=== PATIENT | female | born 1950 | race Caucasian/White ===

== ENCOUNTER → 2017-01-30 20:01 | Outpatient (CLI) | payer MEDICARE, OTHER ==
[~2017-01-30 20:01] MED LIST: BAYER CHEWABLE81 MG PO; CALCIUM CITRATE1 TAB PO; FLEXERIL10 MG; FLEXERIL10 MG PO; GLUCOSAMINE & C1 CAP PO; JUVEN PO; LOVENOX40 MG/0.4 SQ; MELOXICAM PO; MOBIC7.5 MG PO; MULTI-DAY VITAM1 TAB PO; NASCOBAL NS; NIASPAN500 MG PO; NORCO 10/325 TA1 TA1 PO; OSTEO BIFLEX PO; OYST-CAL-5001 TAB PO; PROTONIX40 MG PO; RESTORIL15 MG PO; SYNTHROID25 MCG PO; SYNTHROID75 MCG PO; TYLENOL 8 HOUR650 MG PO; VICODIN 5/500 T1 TAB PO; VITAMIN B-122500 MCG SL
== END | disposition home or self-care (01) ==
LOC: D.LABREF 20:01
DX: N39.0 Urinary tract infection, site not specified (principal)

== ENCOUNTER 2017-01-31 11:40 | Outpatient (CLI) | payer MEDICARE, OTHER ==
[2017-01-30 20:37] LABS: APPEARANCE CLEAR (CLEAR); COLOR YELLOW (YELLOW)
[2017-01-30 20:38] LABS: BILIRUBIN NEGATIVE (NEGATIVE); GLUCOSE NEGATIVE (NEGATIVE); KETONE NEGATIVE (NEGATIVE); LEUKOCYTE ESTERASE NEGATIVE (NEGATIVE); NITRITE NEGATIVE (NEGATIVE); PROTEIN NEGATIVE (NEGATIVE); UROBILINOGEN NORMAL (NORMAL)
[~2017-01-31] VITALS: Ht 167.6 cm; Wt 86.4 kg
[~2017-01-31 11:40] MED LIST changes: -NIASPAN500 MG PO
[2017-01-31] MEDS ORDERED: NIASPAN500 MG PO (12:48)
[2017-01-31 12:49] VITALS: BP 142/84; Ht 167.6 cm; Wt 86.4 kg
--- NOTE | 2017-01-31 12:57 | NUR ---
1255--DISCHARGE INSTRUCTIONS GIVEN, PT VERBALIZES UNDERSTANDING, PT OFF UNIT VIA WC. DARRELL DUNNE
== END 2017-01-31 12:55 | disposition home or self-care (01) ==
LOC: D.OPS 11:40
PROVIDERS: Family Medicine
DX: M81.0 Age-related osteoporosis without current pathological fracture (principal)

== ENCOUNTER 2017-03-07 07:49 | Day surgery (SDC) | payer MEDICARE, OTHER ==
[2017-03-06 13:55] LABS: HEMATOCRIT 43.3 % (36.0-48.0); HEMOGLOBIN 14.7 g/dL (12-16); MCHC 33.9 g/dL (31.0-37.0); MCV 94.1 fL (80.0-100.0); MEAN PLATELET VOLUME 9.9 fL (7.4-10.4); RBC 4.6 10x6/uL (4.00-5.40); RDW 12.4 % (11.5-14.5); WBC 6.1 10x3/uL (4.8-10.8)
[~2017-03-07] VITALS: Ht 167.6 cm; Wt 89.4 kg
[~2017-03-07 07:49] MED LIST changes: +CELEXA20 MG PO; +NIASPAN500 MG PO; +PROLIA INJ 660 MG/M1 IJ; +VITAMIN B-122500 MCG PO
[2017-03-07 11:31] VITALS: BP 137/78; Ht 167.6 cm; Wt 89.4 kg
--- NOTE | 2017-03-07 14:39 | NUR ---
1345 COFFEE GIVEN PER PT REQUEST. 1410 PT STATED SHE HAS VD TWICE WELL W/O DIFF. EXCEPT SOME BURNING USUAL. 1424 PIV REMOVED W/CATHETER TIP INTACT PT RUPAL WELL. DC TEACHING COMPLETE 1430 DC VIA WC OUT TO [facility] WITH DRIVING.
--- NOTE | 2017-03-08 09:10 | OP ---
PATIENT NAME: CRISTOFER WISEMAN MEDICAL RECORD: [id number] :48 LOCATION:D.OPS ADMISSION DATE: SURGEON: CULLEN STACY MD DATE OF OPERATION: 03/07/2017 SURGEON: Cullen Stacy MD ANESTHESIA: MAC. PREOPERATIVE DIAGNOSIS: Interstitial cystitis. PREOPERATIVE DIAGNOSIS: Interstitial cystitis. FINDINGS: Single ureteral orifices bilaterally. No bladder tumors. Diffuse bladder inflammation with glomerulations PROCEDURES: Cystoscopy, intravesical Rimso installation. BLOOD LOSS: None. CLINICAL HISTORY: This is a 66-year-old female, who has complaints of urinary frequency up to every half an hour along with the suprapubic and pelvic and vaginal pain. Her symptoms are consistent with intravesical inflammation. Urine cultures have shown no growth. We will be looking for inflammation of the bladder and if inflammation is seen, we will start treatment with intravesical Rimso. Rimso is an anti-inflammatory. She is allergic to penicillin. She was given Levaquin IV manager labor relations to the OR. DESCRIPTION OF PROCEDURE: The patient was given IV sedation. She was placed in the dorsal lithotomy position and prepped and draped. A 17-Green[place]ic cystoscope with 30-degree lens was used for visualization. Findings are as above. As we filled the bladder, petechial hemorrhages in the bladder wall called glomerulations were seen. The bladder was emptied through the cystoscope and then we placed a red rubber catheter into the bladder and 50 mL of 50% Rimso solution was placed into the bladder. The patient will hold the solution in for about 15 minutes and then void it out. She will come to the office next week to have the second treatment of Rimso given to her by the office nurse. TRANSINT:[id number] Voice Confirmation ID: [id number] DOCUMENT ID: [id number] CULLEN STACY MD at 0910 CC: [id number] DICTATION DATE: 03/07/17 1340 [employer] BUFFER: 03/07/17 2150 [facility] 03/07/[address] [id number]
== END 2017-03-07 14:30 | disposition home or self-care (01) ==
LOC: D.OPS 07:49 → D.PAN 08:15 → D.OPS 08:15 → D.PAN 08:50 → D.OPS 12:15
PROVIDERS: Anesthesiology
DX: N30.10 Interstitial cystitis (chronic) without hematuria (principal); Z88.0 Allergy status to penicillin; Z01.812 Encounter for preprocedural laboratory examination

== ENCOUNTER → 2017-03-15 14:49 | Outpatient (CLI) | payer MEDICARE, OTHER ==
[2017-03-07 11:31] VITALS: BMI 31.8
[2017-03-15 21:45] LABS: APPEARANCE HAZY (CLEAR); BILIRUBIN NEGATIVE (NEGATIVE); COLOR YELLOW (YELLOW); GLUCOSE NEGATIVE (NEGATIVE); KETONE NEGATIVE (NEGATIVE); LEUKOCYTE ESTERASE TRACE (NEGATIVE); NITRITE NEGATIVE (NEGATIVE); PROTEIN NEGATIVE (NEGATIVE); SPECIFIC GRAVITY 1.015 (1.005-1.020); UROBILINOGEN NORMAL (NORMAL)
[2017-03-15 21:48] LABS: BACTERIA FEW /hpf (NONE SEEN); EPITHELIAL CELLS 0-5 /hpf (0-5); WHITE CELLS - URINE 0-5 /hpf (0-5)
== END | disposition home or self-care (01) ==
LOC: D.LABREF 14:49
PROVIDERS: Urology
DX: N39.0 Urinary tract infection, site not specified (principal)

== ENCOUNTER → 2017-04-03 23:15 | Outpatient (CLI) | payer MEDICARE, OTHER ==
[2017-03-07 11:31] VITALS: BMI 31.8
[2017-04-04 01:47] LABS: APPEARANCE HAZY (CLEAR); COLOR GREEN (YELLOW)
[2017-04-04 01:48] LABS: BILIRUBIN NEGATIVE (NEGATIVE); GLUCOSE NEGATIVE (NEGATIVE); KETONE NEGATIVE (NEGATIVE); LEUKOCYTE ESTERASE TRACE (NEGATIVE); NITRITE NEGATIVE (NEGATIVE); PROTEIN TRACE mg/dL (NEGATIVE); UROBILINOGEN NORMAL (NORMAL)
[2017-04-04 01:49] LABS: BACTERIA MODERATE /hpf (NONE SEEN); CALCIUM OXALATE CRYSTALS 0-5 /hpf (NONE SEEN); EPITHELIAL CELLS 0-5 /hpf (0-5); RED CELLS - URINE 0-5 /hpf (0-5); WHITE CELLS - URINE 0-5 /hpf (0-5)
== END | disposition home or self-care (01) ==
LOC: D.LABREF 23:15
PROVIDERS: Internal Medicine
DX: N39.0 Urinary tract infection, site not specified (principal)

== ENCOUNTER → 2017-04-09 17:59 | Outpatient (CLI) | payer MEDICARE, OTHER ==
[2017-03-07 11:31] VITALS: BMI 31.8
[2017-04-09 21:43] LABS: APPEARANCE CLEAR (CLEAR); BILIRUBIN NEGATIVE (NEGATIVE); COLOR YELLOW (YELLOW); GLUCOSE NEGATIVE (NEGATIVE); KETONE NEGATIVE (NEGATIVE); LEUKOCYTE ESTERASE NEGATIVE (NEGATIVE); NITRITE NEGATIVE (NEGATIVE); PROTEIN NEGATIVE (NEGATIVE); SPECIFIC GRAVITY 1.015 (1.005-1.020); UROBILINOGEN NORMAL (NORMAL)
== END | disposition home or self-care (01) ==
LOC: D.LABREF 17:59
PROVIDERS: Urology
DX: N39.0 Urinary tract infection, site not specified (principal)

== ENCOUNTER 2017-06-28 16:52 | Outpatient (CLI) | payer MEDICARE, OTHER ==
[2017-03-07 11:31] VITALS: BMI 31.8
== END 2017-06-28 16:53 | disposition home or self-care (01) ==
LOC: D.MAMMO 16:52
DX: Z12.31 Encounter for screening mammogram for malignant neoplasm of breast (principal)

== ENCOUNTER → 2017-09-03 20:04 | Outpatient (CLI) | payer MEDICARE, OTHER ==
[2017-03-07 11:31] VITALS: BMI 31.8
== END | disposition home or self-care (01) ==
LOC: D.MAMMO 08-09 09:30
DX: R92.8 Other abnormal and inconclusive findings on diagnostic imaging of breast (principal)

== ENCOUNTER 2018-03-26 08:00 | Outpatient (CLI) | payer MEDICARE ==
[2017-03-07 11:31] VITALS: BMI 31.8
== END 2018-03-26 09:00 | disposition home or self-care (01) ==
LOC: D.MAMMO 08:00
DX: R92.8 Other abnormal and inconclusive findings on diagnostic imaging of breast (principal)

== ENCOUNTER 2019-01-13 16:30 | Outpatient (CLI) | payer MEDICARE ==
[2017-03-07 11:31] VITALS: BMI 31.8
== END 2019-01-13 17:00 | disposition home or self-care (01) ==
LOC: D.MAMMO 16:30
PROVIDERS: ATTEND Family Medicine
DX: Z12.31 Encounter for screening mammogram for malignant neoplasm of breast (principal)

== ENCOUNTER → 2019-02-05 09:30 | Outpatient (CLI) | payer MEDICARE ==
[2017-03-07 11:31] VITALS: BMI 31.8
== END | disposition home or self-care (01) ==
LOC: D.MAMMO 09:30
PROVIDERS: ATTEND Family Medicine
DX: R92.8 Other abnormal and inconclusive findings on diagnostic imaging of breast (principal)